=== PATIENT | female | born 1975 | race Caucasian/White ===

== ENCOUNTER 2021-06-14 18:47 | Emergency (ER) | payer OTHER | END 2021-06-14 21:14 | disposition home or self-care (01) | LOC: ER1 18:47 | DX: S61.216A Laceration without foreign body of right little finger without damage to nail, initial encounter (principal); E03.9 Hypothyroidism, unspecified; F17.200 Nicotine dependence, unspecified, uncomplicated; Z23 Encounter for immunization; W29.2XXA Contact with other powered household machinery, initial encounter; Y92.009 Unspecified place in unspecified non-institutional (private) residence as the place of occurrence of the external cause | CPT/HCPCS: 12001; 90471; 90715; 99282 ==